=== PATIENT | male | born 1995 | race Caucasian/White ===

== ENCOUNTER → 2024-03-17 | Outpatient (CLI) | payer OTHER, SELFPAY ==
--- NOTE | 2024-03-17 15:40 | MRI_ITS ---
STUDY: MRI SOFT TISSUE NECK WITH AND WITHOUT CONTRAST REASON FOR EXAM: Male, 29 years old. 1.5cm frim nodule right upper neck/base of skull, AREA OF INTEREST MARKED ABOVE AND BELOW W/ BB. TECHNIQUE: Standarized fat and water weighted pulse sequences were obtained in all 3 orthogonal plane pre and post administration of IV 21ML CLARISCAN. COMPARISON: None. FINDINGS: Minimal peripheral enhancement of low signal mixed rounded to stimulate fibrous tissue in the subdermal is a superficial layer of the subcutaneous fat in the right base of the neck measures 5.9 mm in diameter, see image #7/12 series 5, 07/23 series 4, and the postcontrast image series 9. No lipoma is present. No cyst or solid nodule is seen. Refer to dermatology for assessment and possible biopsy for definitive diagnosis. The patient should be evaluated by dermatology to ensure disc does not represent a melanotic or similar occult lesion. Right neck mostly subcentimeter reactive lymphadenopathy is also present. Normal bilateral parotid glands. 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 Normal bilateral parapharyngeal spaces. Normal bilateral carotid spaces. Normal bilateral sublingual and submandibular glands and spaces. Normal perivertebral space. Normal visualized bilateral faucial tonsils. The visualized tongue, tongue base and oropharynx are normal. There are minimally enlarged lymph nodes of the neck, with preservation of normal jimmy architecture, consistent with a reactive lymph hyperplasia. There is no demonstrated solid or cystic mass lesion. There is no abnormal contrast enhancement. Normal visualized cervical spine. MRI/Orbit Face Neck W/WO Contrast IMPRESSION: 1. Minimal peripheral enhancement of low signal mixed rounded to stimulate fibrous tissue in the subdermal is a superficial layer of the subcutaneous fat in the right base of the neck measures 5.9 mm in diameter, see image #7/12 series 5, 07/23 series 4, and the postcontrast image series 9. No lipoma is present. No cyst or solid nodule is seen. Refer to dermatology for assessment and possible biopsy for definitive diagnosis. The patient should be evaluated by dermatology to ensure disc does not represent a melanotic/basal cell or similar occult lesion. 2. Right neck mostly subcentimeter reactive lymphadenopathy is also present. 3. Normal remaining aspects of the neck. Electronically Signed: Joey Robin MD at 10:29 EDT ,
== END | disposition home or self-care (01) ==
LOC: MRI 15:38
PROVIDERS: PCP Family Medicine; Referring Provider Plastic Surgery; Visit Provider Plastic Surgery
DX: D48.19 Other specified neoplasm of uncertain behavior of connective and other soft tissue (principal)
CPT/HCPCS: 70543; A9575

== ENCOUNTER 2024-04-06 05:53 | Day surgery (SDC) | payer OTHER, SELFPAY ==
[2024-04-06] VITALS (8 sets, daily range): BP systolic 129–154; BP diastolic 67–87; PULSE 94–130; RESP 16–18; TEMP 36.1–36.9; O2SAT 94–130; BMI 34.4
[2024-04-06] MEDS: Lactated Ringers 1,000 ML 15 ML IV (06:21)
--- NOTE | 2024-04-06 07:13 | PRE.ANES_ITS ---
ASA Classification* ASA Classification ASA Classification: 2 Assessment & Plan Anesthesia* Anesthesia Assessment Anesthesia Assessment: Discussed sedation and/or anesthesia options, risks, benefits, and alternatives with patient/parents/legal guardian/POA. Questions invited. The patient/parents/legal guardian/POA seems to understand and agrees to proceed with anesthesia plan. Reviewed the physical assessment, medical history, allergy history and patient home medications list prior to surgery/procedure/anesthetic and documented any changes. Performed airway and anesthesia risk assessments. 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 When Was Last Pacemaker Check QUESTION #4 FULL TEXT: You/Your Family Experience fever (hyperthermia) with Anesthesia Last Oral Intake Last Oral intake: Last Oral Intake NPO since 00:00 04/06/24 06:23 Meds taken in AM with sips of No 04/06/24 06:23 water? Meds patient instructed to take am of surgery PONV PONV - glass forming engineer: PONV - glass forming engineer Female No 03/30/24 08:36 HX of Motion Sickness No 03/30/24 08:36 HX of N/V After Surgery No 03/30/24 08:36 Non-Smoker Yes 03/30/24 08:36 Duration of Surgery greater No 03/30/24 08:36 than 60 minutes Number of Risk Factors 1 03/30/24 08:36 PONV Score Low Risk 03/30/24 08:36 Height & Weight Height & Weight: Anesthesia: Height & Weight Height 5 ft 11 in 04/06/24 06:23 Weight: 112.037 kg 04/06/24 06:23 Body Mass Index (BMI) 34.4 04/06/24 06:23 Respiratory Assessment Respiratory Assessment - glass forming engineer: Respiratory Tract Infection Hx - glass forming engineer Hx Respiratory Tract Infection No 03/30/24 08:36 STOP Sleep Apnea STOP Sleep Apnea - glass forming engineer: STOP Sleep Apnea - glass forming engineer Hx Hypertension No 03/30/24 08:36 Hx Sleep Apnea No 03/30/24 08:36 CPAP BIPAP Do you snore loudly (louder Yes 03/30/24 08:36 than talking or can be heard Do you often feel tired/ No 03/30/24 08:36 fatigued/ sleepy during daytime? Has anyone observed you stop No 03/30/24 08:36 breathing during sleep? STOP Results Negative 03/30/24 08:36 QUESTION #5 FULL TEXT : Do you snore loudly (louder than talking or can be heard through closed doors)? 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 Specify any problems Hx of Preganancy in last 3 N/A 03/30/24 08:36 Months Nurse Filling Out Transfusion DSCHRIBER 03/30/24 08:36 & Questions: Date: 03/30/24 03/30/24 08:36 Time: 08:37 03/30/24 08:36 Patient unable to answer at this time (ie. confused, unrespo /Reproduction History /Reproductive History - glass forming engineer: /Reproductive Hx- glass forming engineer Hx Now No 03/30/24 08:36 Gestational Age (in weeks): EDC: Hx Hx Para Hx Section SAB No 03/30/24 08:36 Active Medications Active Medications: Current Medications Generic Name Dose Route Start Last Admin Trade Name Becca PRN Reason Stop Dose Admin Cefazolin Sodium 2 gm/ Sodium 110 mls @ 150 mls/hr 04/06/24 07:30 Chloride IV 04/06/24 08:13 PREOP ONE Lactated Ringer's 1,000 mls @ 15 mls/hr 04/06/24 06:15 04/06/24 06:21 IV 15 mls/hr .Q48H MICAELA Administration PFSH Medical History Wears contact lenses Wears glasses Alcohol use High cholesterol Heartburn Non-smoker Home Medications ?Medication ?Instructions ?Recorded ?Last Taken ?Type ashwagandha extract 120 mg capsule 120 mg PO DAILY 02/23/24 04/02/24 History Allergy/AdvReac Type Severity Reaction Status Date / Time sodium chloride (From Optics Allergy Mild Itching Verified 04/06/24 06:20 Eye Wash) Family History Mother Arthritis Grandmother Arthritis Grandfather Arthritis Melanoma Father Depression Uncle Diabetes Surgical History H/O wisdom tooth extraction Social History Smoking Status: Never smoker alcohol intake: never additional social history: pt denies vaping, pt denies marijuana use, denies edible use, denies aspirin use uses ibuprofen as needed. Review of Systems (Anesthesia) ROS Narrative System reviewed and no additional complaints, except as documented.
--- NOTE | 2024-04-06 07:13 | PCM.HP.BLA ---
History and Physical Date of Admission: 04/06/24 The patient is examined and there are no changes to the H&P dated 03/30/24. Informed consent for excision connective tissue neoplasm right posterior neck obtained. Pt for excision neoplasm right posterior neck. 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
[2024-04-06] MEDS: Cefazolin 2 GM in 0.9% Normal Saline (100mL Bag) 100 ML IV (07:28)
--- NOTE | 2024-04-06 07:30 | SOF_PTH ---
PATIENT: SANDHYA TAVARES LOC: [facility] [place] U#:[id number] AGE/SX: 29/M ROOM: RE04/06/[address]: Dr. Blanca Mcdaniel MD : 1995 BED: DIS: 04/06/2024 SPEC #: [id number] RECD: 04/06/24 09:37 STATUS: TYRA REBakari #: [id number] ALICIA: 04/06/24 07:[address]: Blanca Mcdaniel DEPT: SURGICAL PATHOLOGY RECD BY: Lucy Perales ENTERED: 04/06/24 10:37 SP TYPE: SOFT TISS OTHR DR: Dr. 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 Negative for malignancy. SJ: 04/07/2024 COMMENT Correlation with clinical findings and appropriate follow up are necessary. MICROSCOPIC DESCRIPTION Slides are reviewed. GROSS DESCRIPTION Received in fixative is one container labeled with the patient's name and designated Mass posterior neck. The specimen consists of a phillips-white skin piece with underlying tissue. The skin piece measures 1.5 x 0.5cm and underlying tissue measures 2.0 x 1.5 x 1.0cm. The specimen is inked, serially sectioned and reveal a phillips-white solid nodule in the underlying tissue. The entire specimen is submitted in two cassettes. GREG/ 04/06/2024 TC:5 CPT:79268
[2024-04-06] MEDS: Lidocaine 1% /Epi 1:100 (20ml) 20 ML Vial (08:05)
[2024-04-06] MEDS: BACITRACIN/POLYMYXIN B 15 GM Tube 1 APPLIC (08:40)
--- NOTE | 2024-04-06 08:57 | EX.PCM.DISCH ---
Discharge Instructions Dressing / Incision Additional Dressing/Incision Instructions:: Keep your back elevated (recliner position) for the next 4-5 nights to diminish swelling and bruising. Take the oral antibiotic (Keflex) 2 times a day until finished. May shower over the area, but do not scrub. Apply a thin layer of antibiotic ointment (like Neosporin, bacitracin, or triple antibiotic ointment) 1-2 times a day. Follow Up Care Please Follow Up With: Blanca Mcdaniel MD When: 1 to 2 weeks Test Results: Test results from this visit will be discussed in further detail at your follow-up appointment, if applicable. Discharge Plan Admission Attending Provider: Blanca Mcdaniel Primary Care Provider: Luan Michelle Instructions Print Language: Japanese Discharge Orders/Prescriptions Prescriptions: New cephalexin 500 mg capsule 500 mg PO BID 5 Days Qty: 10 0RF No Action ashwagandha extract 120 mg capsule 120 mg PO DAILY Referrals / Follow Up: Luan Michelle MD [Primary Care Provider] - Disposition Disposition (needs filled in before D/C Order can be placed): Home, Self Care
--- NOTE | 2024-04-06 08:59 | PCM.POST.ANE ---
Anesthesia: Postop Eval I Current Vital Signs Temperature: 97 F Pulse Rate: 104 Blood Pressure: 129/73 Respiratory Rate: 16 Pulse Ox: 96 Oxygen Delivery Method: Room Air Assessment Airway patent: Yes Spontaneous unlabored respirations: Yes Mental status: Awake and Calm nausea: No Vomiting: No Anesthesia Complication: No Fluid Hydration Crystalloid volume administer (ml): 800 Total IV fluid infused: 800 Progress Note Anesthesia document: Postop Eval 1 completed: Yes
--- NOTE | 2024-04-06 09:00 | PCM.OPRPT ---
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 He presents for excision of the mass with submission for pathologic evaluation. Informed consent was obtained. The patient is brought to the operating room and placed under general anesthesia in the supine position. The patient is then carefully positioned in a left lateral decubitus position with a beanbag positioner with care to pad all pressure points, apply ice and axillary roll, and a warming blanket. The posterior neck is then prepped and draped in the usual sterile fashion. We initially began with injecting 1% Xylocaine with epinephrine in the periphery of the mass. Following this, an elliptical incision is made over top of the mass and dissection carried down through to the subcutaneous fat. An ill-defined mass is then excised and passed off the operative field to be sent to pathology. Hemostasis is controlled with cautery. The wound is then closed in layers using a 3-0 Vicryl suture in the subcutaneous tissue and dermis. Skin edges are approximated with a running subcuticular Vicryl suture. Further refinement of the closure was done with a plain gut suture. Antibiotic ointment is applied to the site. He tolerated the procedure well and was taken to the recovery area in an awakening in stable condition. Needle and sponge counts are correct. Complications None Admit VTE Documentation VTE Mechan Device Prophylaxis: SCD's
--- NOTE | 2024-04-06 09:11 | POSTOPAN2_ITS ---
Anesthesia Postop Eval I Sum Postop Eval Completion status Anesthesia document: Postop Eval 1 completed: Yes Anesthesia Postop Eval I Summary Anesthesia Postop Eval I Summary: Anesthesia Postop Eval I: Assessment Summary Airway patent Yes 04/06/24 08:59 POWDER ROOM ATTENDANT.MDOT Spontaneous unlabored Yes 04/06/24 08:59 POWDER ROOM ATTENDANT.MDOT respirations Mental status Awake,Calm 04/06/24 08:59 POWDER ROOM ATTENDANT.MDOT nausea No 04/06/24 08:59 POWDER ROOM ATTENDANT.MDOT Vomiting No 04/06/24 08:59 POWDER ROOM ATTENDANT.MDOT Anesthesia Postop Eval I: Fluid Summary Crystalloid volume administer 800 04/06/24 08:59 POWDER ROOM ATTENDANT.MDOT (ml) Colloids volume administered ( ml) Blood Product volume administered (ml) Total IV fluid infused 800 04/06/24 08:59 POWDER ROOM ATTENDANT.MDOT Anesthesia Postop Eval I: Summary Notes Anesthesia Complication No 04/06/24 08:59 POWDER ROOM ATTENDANT.MDOT Anesthesia Complication Comment: Post-operative progress note Anesthesia: Postop Eval II Evaluation Mental status: Awake Pain Level: 0 nausea: No Vomiting: No
--- NOTE | 2024-04-06 09:11 | PCM.POSTANE2 ---
Anesthesia Postop Eval I Sum Postop Eval Completion status Anesthesia document: Postop Eval 1 completed: Yes Anesthesia Postop Eval I Summary Anesthesia Postop Eval I Summary: Anesthesia Postop Eval I: Assessment Summary Airway patent Yes 04/06/24 08:59 EGG WORKER.MDOT Spontaneous unlabored Yes 04/06/24 08:59 EGG WORKER.MDOT respirations Mental status Awake,Calm 04/06/24 08:59 EGG WORKER.MDOT nausea No 04/06/24 08:59 EGG WORKER.MDOT Vomiting No 04/06/24 08:59 EGG WORKER.MDOT Anesthesia Postop Eval I: Fluid Summary Crystalloid volume administer 800 04/06/24 08:59 EGG WORKER.MDOT (ml) Colloids volume administered ( ml) Blood Product volume administered (ml) Total IV fluid infused 800 04/06/24 08:59 EGG WORKER.MDOT Anesthesia Postop Eval I: Summary Notes Anesthesia Complication No 04/06/24 08:59 EGG WORKER.MDOT Anesthesia Complication Comment: Post-operative progress note Anesthesia: Postop Eval II Evaluation Mental status: Awake Pain Level: 0 nausea: No Vomiting: No
== END 2024-04-06 09:47 | disposition home or self-care (01) ==
LOC: SDC 05:55 → AC 05:56
PROVIDERS: PCP Family Medicine; Referring Provider Plastic Surgery; Visit Provider Plastic Surgery
PROC: (CPT 12042; principal; 2024-04-06 07:20)
DX: D48.19 Other specified neoplasm of uncertain behavior of connective and other soft tissue (principal)
CPT/HCPCS: 12042; 00300; 88305; J7120; J2405